=== PATIENT | male | born 1990 | race Caucasian/White ===

== ENCOUNTER 2024-10-01 19:10 | Emergency (ER) | payer SELFPAY ==
[2024-10-01 19:23] VITALS: BP 147/89
[2024-10-01 21:42] VITALS: BMI 20.1
--- NOTE | 2024-10-01 22:03 | ED.GENMED ---
History of Present Illness
General
Chief Complaint: Musculo-Skeletal Complaint
Source: patient
Exam Limitations: none
Time Seen by Provider: 10/01/24 21:56
Nursing documentation reviewed up to this point in time: agreed with
History of Present Illness
History of Present Illness:
34 yr old male presents to the ER. Patient here patient was seen by urgent care. He punched a door and was diagnosed the fracture however has a small laceration and was sent here for open fracture. His tetanus is up-to-date less than 4 years. He
denies any other injury. He is right-hand dominant.
Past History
Past History
ED Past Medical History: None
ED Past Surgical History: None
Social History
Tobacco: Smoker (11/01 ppd)
Alcohol: None
Drug: None
Personal: Single
Living: with family
Employment: Employed
Family History
Family History: Other (Noncontributory)
Review of Systems
Review of Systems
Allergies reviewed?: Yes
All Other Systems: ROS reviewed and negative except as documented in HPI and ROS
Constitutional: Reports no symptoms
Musculoskeletal: Reports other (right hand pain/injury/laceration)
Skin: Reports other (see above )
Neurological: Reports no symptoms
Psychiatric: Reports no symptoms
Phy Exam
General Physical Exam
General Presentation: no apparent distress
General age: appears stated age
General Skin: warm and dry
General Habitus: normal
General Mental: alert
General Hydration: appears well hydrated
Neurological Exam
Neurological Exam: alert and oriented x3
Musculoskeletal Exam
Musculoskeletal Exam: other (RUE with strong pulses + swelling /tenderness to distal 4th and 5th MC; small 1 cm superficial laceration/abrasion + distal sensation and nml cap refill )
Skin Exam
Skin Exam: normal color and warm/dry
Psychiatric Exam
Psychiatric Exam: normal mood/affect
Course
Orders/Labs/Results
Orders:
Orders
10/01/24 22:03
Hand, Right 3 View [CR Hand - Right Min 3 Views] Urgent
Comment:
Reason For Exam: trauma
10/01/24 22:57
Cephalexin Monohydrate [Keflex] 500 mg PO NOW STA
10/01/24 22:58
Splints/Slings/Crut- Treatment ONCE
Location: Right
Type of Splint: Ulnar Gutter
Vital Signs
Initial and Last Documented VS:
Initial Vital Signs
Pulse Resp BP Pulse Ox
90 18 147/89 98
10/01/24 19:23 10/01/24 19:23 10/01/24 19:23 10/01/24 19:23
Last Documented Vital Signs
Pulse Resp BP Pulse Ox
90 18 147/89 98
10/01/24 19:23 10/01/24 19:23 10/01/24 19:23 10/01/24 19:23
Procedures
Splint Check
Splint checked by provider?: Yes
Circulation/Movement/Sensation post splint application: brisk cap refill and full sensation
MDM/Problems Addressed
MDM/Problems Addressed:
Patient has a midshaft fifth metacarpal fracture. there is a small abrasion/ for superficial laceration . wound was wound cleaned with normal saline and antibiotic ointment applied.xrays reviewed with DR Valverde . Patient has normal
sensation. Ulna/gutter splint applied and sling. ortho, DR Belle made aware via tiger text. Will treat with Keflex for mild abrasion/superficial laceration however discussed very prompt follow-up with orthopedic hand surgery.
*Critical Care Note
Total Time (30-74mins, 75-104mins- exclusive of procedures): Not Applicable
ED Attending Note
-
Portions of this chart may have been created with voice recognition software.� Occasional wrong word or��sound alike� substitutions may have occurred due to the inherent limitations of voice recognition software.
Discharge Plan
Departure
Patient Disposition: Home (Routine Discharge)
Date of Disposition: 10/01/24
Time of Disposition: 23:01
Patient with high blood pressure during this ER visit?: Yes
Covid-19: Not Applicable
Discharge Problem:
Fracture of metacarpal
Instructions: Hand fracture, Splint Care ED
Prescriptions:
New
cephalexin 500 mg capsule
500 mg PO Q6H Qty: 20 0RF
Referrals:
Yoni Belle MD [Active] -
NONE,* [Family Provider] -
Activity Restrictions/Additional Instructions:
Wear splint for support until seen and evaluated by orthopedic doctor. Do not wet splint. Keep up and elevated as much as possible. You may ice over affected area
Please call orthopedic office tomorrow for reevaluation in the next several days. It is important that you take antibiotic as directed to prevent infection. this medication was sent to your pharmacy.
You may take ibuprofen 400 mg every hours with food for pain. you may wear sling for support but remove at night while sleeping
Return if any worsening of symptoms of increased pain cold numb or blue fingers
Interventions
Interventions:
*Risk Screen - Suicide Last Done: 10/01/24 19:25
*General Assessment Last Done: 10/01/24 21:42
*Neglect/Abuse Screening Last Done: 10/01/24 19:25
*ED COVID-19 Vaccine History Last Done: 10/01/24 21:42
ED-Musculoskeletal Assessment Last Done: 10/01/24 21:42
Discharge Date and Time
Print Language: OMANI
[2024-10-01] MEDS: KEFLEX 500 MG PO (23:14)
== END 2024-10-01 23:50 | disposition home or self-care (01) ==
LOC: EMR 19:10
PROVIDERS: EMERGENCY PHYSICIAN Emergency Medicine
DX: S62.326B Displaced fracture of shaft of fifth metacarpal bone, right hand, initial encounter for open fracture (principal); W22.09XA Striking against other stationary object, initial encounter; F17.210 Nicotine dependence, cigarettes, uncomplicated
CPT/HCPCS: 99283; 29125; 73130